=== PATIENT | female | born 1975 | race Caucasian/White ===

== ENCOUNTER 2017-03-12 17:22 | Emergency (ER) | payer BC ==
[2017-03-12] MEDS ORDERED: SODIUM CHLORIDE 0.9% 1,000 ML IV ONE (18:13)
[2017-03-12] MEDS ORDERED: RX INFO: IV CONTRAST WAS GIVEN 1 EACH MISC MISCELLANE PRN (18:14)
[2017-03-12 18:19] LABS: Glucose,Whole Blood 116 mg/dL (75-99)
[2017-03-12 18:26] LABS: Appearance,Urine Clear (Clear); Bilirubin,Urine Negative (Negative); Glucose,Urine (UA) Negative (Negative); Ketones,Urine Negative (Negative); Leukocyte Esterase,Urine Negative (Negative); Nitrite,Urine Negative (Negative); PH, Urine 6.5 (5.0-8.0); Protein,Urine Negative (Negative); Specific Gravity,Urine 1.006 (1.001-1.035); UA Billing (MACRO vs. MICRO) CHEM; Urobilinogen,Urine <2.0 mg/dL (<2.0)
[2017-03-12 18:28] LABS: Basophils # (A) 0.1 k/uL (0-0.2); Basophils % (A) 1 %; CH 33.3; CHCM 33.5; Eosinophils # (A) 0.3 k/uL (0-0.7); Eosinophils % (A) 3 %; HCT 42.4 % (34.0-46.0); HDW 2.27; HGB 14.2 gm/dL (11.4-16.0); Luc # (Auto) 0.16; Luc % (Auto) 2; Lymphocytes # (A) 2.4 k/uL (1.0-4.8); Lymphocytes % (A) 26 %; MCH 33.4 pg (25.0-35.0); MCHC 33.6 g/dL (31.0-37.0); MCV 99.6 fL (80.0-100.0); Mean Platelet Volume 8.9; Monocytes # (A) 0.5 k/uL (0-1.0); Monocytes % (A) 6 %; Neutrophils # (A) 5.9 k/uL (1.3-7.7); Neutrophils % (A) 63 %; RBC 4.26 m/uL (3.80-5.40); RDW 12.3 % (11.5-15.5); WBC 9.4 k/uL (3.8-10.6)
[2017-03-12 18:34] LABS: Partial Thromboplastin Time 26.3 sec (22.0-30.0); Prothrombin Time 10.1 sec (9.0-12.0)
[2017-03-12 18:35] LABS: ALT 32 U/L (9-52); AST 24 U/L (14-36); Alkaline Phosphatase 70 U/L (38-126); Anion Gap 9 mmol/L; Blood Urea Nitrogen 8 mg/dL (7-17); Calcium 9.4 mg/dL (8.4-10.2); Carbon Dioxide 25 mmol/L (22-30); Chloride 102 mmol/L (98-107); Glucose 85 mg/dL (74-99); Non-African American GFR(MDRD) >60 (>60 ml/min/1.73 sqM); Sodium 136 mmol/L (137-145); Total Bilirubin 0.3 mg/dL (0.2-1.3); Total Protein 7.1 g/dL (6.3-8.2)
[2017-03-12 18:46] LABS: Creatine Kinase 143 U/L (30-135)
[2017-03-12 18:59] LABS: Troponin I <0.012 ng/mL (0.000-0.034)
[2017-03-12 19:09] LABS: Creatine Kinase MB 3.6 ng/mL (0.0-2.4)
--- NOTE | 2017-03-12 19:59 | CT ---
EXAMINATION TYPE: CT brain wo con DATE OF EXAM: 03/12/2017 COMPARISON: 09/18/2009 HISTORY: Patient complains of headache and altered mental status. CT DLP: 837.5 mGycm. Automated Exposure Control for Dose Reduction was Utilized. TECHNIQUE: CT scan of the head is performed without contrast. FINDINGS: There is no acute intracranial hemorrhage, mass effect, or midline shift identified. The ventricles and sulci are within normal limits in size. The globes are intact and the visualized sin uses are clear. There is hypoplasia of the frontal sinuses noted. IMPRESSION: 1. No acute intracranial hemorrhage, mass effect, or midline shift is seen. 2. Frontal sinus hypoplasia.
--- NOTE | 2017-03-12 20:17 | CT ---
EXAMINATION TYPE: CT angio head neck DATE OF EXAM: 03/12/2017 HISTORY: Patient complains of headache, neck stiffness, and episode of confusion. COMPARISON: NONE CT DLP: 229 mGycm. Automated Exposure Control for Dose Reduction was Utilized. TECHNIQUE: CTA scan of the neck is performed with IV Contrast, patient injected with 65 mL of Omnipa que 350, axial images are obtained, coronal and sagittal reformatted images are reviewed. Three-D rec onstructed images are created on an independent workstation and reviewed. FINDINGS: Carotid/Vascular Structures: Origins of the great vessels are unremarkable without evidence of stenos is. Common carotid arteries also demonstrate no evidence of stenosis. No evidence of calcific or nonc alcific atherosclerosis at the carotid bulbs. Internal carotid arteries are widely patent. There is n o evidence of intracranial aneurysm or stenosis. The posterior to indicating arteries appear diminuti ve although the [place] of [place] appears intact. In the arterial phase there is somewhat limited eval uation of the intracranial structures. No evidence of midline shift. The vertebral arteries have norm al origins and are also widely patent without evidence of dissection. Vertebral arteries are codomina nt. Other: Mild paraseptal emphysematous changes are seen with right apical blebs noted. Osseous structur es appear intact. Small disc osteophyte complexes are seen the 3 C4, C4-C5, and C5-C6. IMPRESSION: No evidence of stenosis, dissection, or aneurysm of the carotid, vertebral arteries, or intracranial vasculature.
--- NOTE | 2017-03-12 20:23 | XR ---
EXAMINATION TYPE: XR chest 2V DATE OF EXAM: 03/12/2017 COMPARISON: 09/18/2009 HISTORY: Altered mental status. TECHNIQUE: Frontal and lateral views of the chest are obtained. FINDINGS: There is no focal air space opacity, pleural effusion, or pneumothorax seen. The cardiac silhouette size is within normal limits. The osseous structures are intact. Minimal degenerative ch anges of the thoracic spine are seen. IMPRESSION: No acute cardiopulmonary process.
[2017-03-12 20:40] VITALS: RESP 16
--- NOTE | 2017-03-12 22:16 | ED ---
Altered Mental Status HPI - General Chief Complaint: Altered Mental Status Stated Complaint: HEAD AND NECK STIFFNESS, CONFUSION Time Seen by Provider: 03/12/17 18:07 Source: patient Mode of arrival: ambulatory Limitations: no limitations - History of Present Illness Initial Comments: Mno antibiotics are not her family noticed that there was a change in the mental status she was very slow responding it happened when they were walking and about 4 PM this in time she said she heard a pop in her back of her head and then she was INFORMED him of right side of the body was no loss of consciousness she was nauseous no vomiting. Does have a headache plus nausea no vomiting no signs of TIA or CVA. Does have a headache no neck stiffness no chest pain no shortness of breath no abdominal pain - Related Data Home Medications Medication Instructions Recorded Confirmed traMADol HCl [Ultram] 50 mg PO BID PRN 02/25/14 03/12/17 Cyclobenzaprine [Flexeril] 5 mg PO HS PRN 08/28/14 03/12/17 Gabapentin [Neurontin] 400 mg PO QID 08/28/14 03/12/17 Ondansetron [Zofran ODT] 8 mg PO Q8HR PRN 03/12/17 03/12/17 Previous Rx's Medication Instructions Recorded traMADol HCL [Ultram] 50 mg PO Q6HR PRN #15 tab 03/12/17 Allergies Allergy/AdvReac Type Severity Reaction Status Date / Time aspirin Allergy Rash/Hives Verified 03/12/17 18:55 codeine Allergy Anaphylaxis Verified 03/12/17 18:55 hydrocodone bitartrate Allergy Anaphylaxis Verified 03/12/17 18:55 [From Vicodin] morphine Allergy Anaphylaxis Verified 03/12/17 18:55 Review of Systems ROS Statement: Those systems with pertinent positive or pertinent negative responses have been documented in the HPI. ROS Other: All systems not noted in ROS Statement are negative. Past Medical History Past Medical History: Rheumatoid Arthritis (RA) History of Any Multi-Drug Resistant Organisms: None Reported Past Surgical History: Section, Tubal Ligation, Uterine Ablation Additional Past Surgical History / Comment(s): Nephrectomy - Left; Past Psychological History: No Psychological Hx Reported Smoking Status: Current every day smoker Past Alcohol Use History: Occasional Past Drug Use History: None Reported General Exam - General Exam Comments Initial Comments: General: The patient is awake and alert, in no distress, and does not appear acutely ill. Does looks anxious anxious him a GCS is 15 Skin: Skin is warm and dry and no rashes or lesions are noted. Eye: Pupils are equal, round and reactive to light, extra-ocular movements are intact; there is normal conjunctiva bilaterally. Ears, nose, mouth and throat: There are moist mucous membranes and no oral lesions. Neck: The neck is supple, there is no tenderness or JVD. Cardiovascular: There is a regular rate and rhythm. No murmur, rub or gallop is appreciated. Respiratory: To auscultation bilateral, no wheezing no rhonchi no distress respiratory saldana noticed Gastrointestinal: Soft, non-distended, non-tender abdomen without masses or organomegaly noted. There is no rebound or guarding present. Bowel sounds are unremarkable. Back: There is no tenderness to palpation in the midline. There is no obvious deformity. Musculoskeletal: Normal ROM, no tenderness, There is no pedal edema. There is no calf tenderness or swelling. No cords were appreciated. Neurological: CN II-XII intact, Cranial nerves III through XII are intact. There are no obvious motor or sensory deficits. Coordination appears grossly intact. Speech is normal. Psychiatric: Cooperative, appropriate mood & affect, normal judgment. Limitations: no limitations Course Vital Signs 03/12/17 03/12/17 03/12/17 17:34 18:55 20:39 Temperature 98.4 F Pulse Rate 74 71 76 Respiratory 18 18 16 Rate Blood Pressure 139/73 130/88 140/88 O2 Sat by Pulse 98 98 97 Oximetry Laboratory reviewed, CBC, CMP, troponin, EKG is within normal range head CT and CT angios LS or unremarkable as well, these were discussed with the patient, patient was advised to take Tylenol or Motrin for the headache she had trach does she be given some tramadol to follow-up with family doctor - Reevaluation(s) Reevaluation #1: 03/12/17 22:17 Anicteric 2215 she feels quite GCS is 15 and she agrees to go home and follow- up with family doctor Medical Decision Making - Lab Data Result diagrams: 03/12/17 17:50 03/12/17 17:50 Lab Results 03/12/17 03/12/17 03/12/17 Range/Units 17:50 17:50 17:50 WBC 9.4 (3.8-10.6) k/uL RBC 4.26 (3.80-5.40) m/uL Hgb 14.2 (11.4-16.0) gm/dL Hct 42.4 (34.0-46.0) % MCV 99.6 (80.0-100.0) fL MCH 33.4 (25.0-35.0) pg MCHC 33.6 (31.0-37.0) g/dL RDW 12.3 (11.5-15.5) % Plt Count 200 (150-450) k/uL Neutrophils % 63 % Lymphocytes % 26 % Monocytes % 6 % Eosinophils % 3 % Basophils % 1 % Neutrophils # 5.9 (1.3-7.7) k/uL Lymphocytes # 2.4 (1.0-4.8) k/uL Monocytes # 0.5 (0-1.0) k/uL Eosinophils # 0.3 (0-0.7) k/uL Basophils # 0.1 (0-0.2) k/uL PT (9.0-12.0) sec INR (<1.2) APTT (22.0-30.0) sec Sodium 136 L (137-145) mmol/L Potassium 4.0 (3.5-5.1) mmol/L Chloride 102 (98-107) mmol/L Carbon Dioxide 25 (22-30) mmol/L Anion Gap 9 mmol/L BUN 8 (7-17) mg/dL Creatinine 0.81 (0.52-1.04) mg/dL Est GFR (MDRD) Af Amer >60 (>60 ml/min/1.73 sqM) Est GFR (MDRD) Non-Af >60 (>60 ml/min/1.73 sqM) Glucose 85 (74-99) mg/dL POC Glucose (mg/dL) (75-99) mg/dL POC Glu Cap Cutter ID Calcium 9.4 (8.4-10.2) mg/dL Total Bilirubin 0.3 (0.2-1.3) mg/dL AST 24 (14-36) U/L ALT 32 (9-52) U/L Alkaline Phosphatase 70 (38-126) U/L Total Creatine Kinase 143 H (30-135) U/L CK-MB (CK-2) 3.6 H* (0.0-2.4) ng/mL CK-MB (CK-2) Rel Index 2.5 Troponin I <0.012 (0.000-0.034) ng/mL Total Protein 7.1 (6.3-8.2) g/dL Albumin 4.2 (3.5-5.0) g/dL Urine Color Urine Appearance (Clear) Urine pH (5.0-8.0) Ur Specific [place] (1.001-1.035) Urine Protein (Negative) Urine Glucose (UA) (Negative) Urine Ketones (Negative) Urine Blood (Negative) Urine Nitrite (Negative) Urine Bilirubin (Negative) Urine Urobilinogen (<2.0) mg/dL Ur Leukocyte Esterase (Negative) Urine Opiates Screen (NotDetected) Ur Oxycodone Screen (NotDetected) Urine Methadone Screen (NotDetected) Ur Propoxyphene Screen (NotDetected) Ur Barbiturates Screen (NotDetected) U Tricyclic Antidepress (NotDetected) Ur Phencyclidine Scrn (NotDetected) Ur Amphetamines Screen (NotDetected) U Methamphetamines Scrn (NotDetected) U Benzodiazepines Scrn (NotDetected) Urine Cocaine Screen (NotDetected) U Marijuana (THC) Screen (NotDetected) 03/12/17 03/12/17 03/12/17 Range/Units 17:50 17:50 18:18 WBC (3.8-10.6) k/uL RBC (3.80-5.40) m/uL Hgb (11.4-16.0) gm/dL Hct (34.0-46.0) % MCV (80.0-100.0) fL MCH (25.0-35.0) pg MCHC (31.0-37.0) g/dL RDW (11.5-15.5) % Plt Count (150-450) k/uL Neutrophils % % Lymphocytes % % Monocytes % % Eosinophils % % Basophils % % Neutrophils # (1.3-7.7) k/uL Lymphocytes # (1.0-4.8) k/uL Monocytes # (0-1.0) k/uL Eosinophils # (0-0.7) k/uL Basophils # (0-0.2) k/uL PT 10.1 (9.0-12.0) sec INR 1.0 (<1.2) APTT 26.3 (22.0-30.0) sec Sodium (137-145) mmol/L Potassium (3.5-5.1) mmol/L Chloride (98-107) mmol/L Carbon Dioxide (22-30) mmol/L Anion Gap mmol/L BUN (7-17) mg/dL Creatinine (0.52-1.04) mg/dL Est GFR (MDRD) Af Amer (>60 ml/min/1.73 sqM) Est GFR (MDRD) Non-Af (>60 ml/min/1.73 sqM) Glucose (74-99) mg/dL POC Glucose (mg/dL) 116 H (75-99) mg/dL POC Glu Cap Cutter ID Theresa Penaloza Calcium (8.4-10.2) mg/dL Total Bilirubin (0.2-1.3) mg/dL AST (14-36) U/L ALT (9-52) U/L Alkaline Phosphatase (38-126) U/L Total Creatine Kinase (30-135) U/L CK-MB (CK-2) (0.0-2.4) ng/mL CK-MB (CK-2) Rel Index Troponin I (0.000-0.034) ng/mL Total Protein (6.3-8.2) g/dL Albumin (3.5-5.0) g/dL Urine Color Light Yellow Urine Appearance Clear (Clear) Urine pH 6.5 (5.0-8.0) Ur Specific [place] 1.006 (1.001-1.035) Urine Protein Negative (Negative) Urine Glucose (UA) Negative (Negative) Urine Ketones Negative (Negative) Urine Blood Negative (Negative) Urine Nitrite Negative (Negative) Urine Bilirubin Negative (Negative) Urine Urobilinogen <2.0 (<2.0) mg/dL Ur Leukocyte Esterase Negative (Negative) Urine Opiates Screen Not Detected (NotDetected) Ur Oxycodone Screen Not Detected (NotDetected) Urine Methadone Screen Not Detected (NotDetected) Ur Propoxyphene Screen Not Detected (NotDetected) Ur Barbiturates Screen Not Detected (NotDetected) U Tricyclic Antidepress Not Detected (NotDetected) Ur Phencyclidine Scrn Not Detected (NotDetected) Ur Amphetamines Screen Not Detected (NotDetected) U Methamphetamines Scrn Not Detected (NotDetected) U Benzodiazepines Scrn Not Detected (NotDetected) Urine Cocaine Screen Not Detected (NotDetected) U Marijuana (THC) Screen Not Detected (NotDetected) Disposition Clinical Impression: Headache, Change in mental status Disposition: HOME SELF-CARE Condition: Good Prescriptions: traMADol HCL [Ultram] 50 mg PO Q6HR PRN #15 tab PRN Reason: Pain Referrals: Annia Silva DO [Primary Care Provider] - 1-2 days
[2017-03-12 22:27] VITALS: TEMP 97.6
[2017-03-12 22:36] VITALS: BP 129/63; PULSE 65
== END 2017-03-12 22:39 | disposition home or self-care (01) ==
LOC: EC 17:22
DX: R41.82 Altered mental status, unspecified (principal); R51 Headache; R40.2412 Glasgow coma scale score 13-15, at arrival to emergency department; F17.200 Nicotine dependence, unspecified, uncomplicated; Z79.899 Other long term (current) drug therapy; Z88.6 Allergy status to analgesic agent; Z88.5 Allergy status to narcotic agent
CPT/HCPCS: 99285 ×2; 96360 ×2; 36415; 93005; 80053; 82550; 82553; 84484; 85025; 85610; 85730; 81003; 80306; 71020; 70496; 70450; 70498; Q9967

== ENCOUNTER 2017-06-13 07:18 | Day surgery (SDC) | payer BC, OTHER ==
[2017-06-07 11:30] VITALS: BMI 23.3
--- NOTE | 2017-06-12 13:59 | HP ---
HISTORY AND PHYSICAL CHIEF COMPLAINT: Right shoulder pain. 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 She notes persistent pain with overhead use and at night ever since. She has tried therapy in addition to an injection site. She has tried therapy in addition to medications with only partial temporary relief. She has been working with restrictions. PAST MEDICAL HISTORY: Significant for rheumatoid arthritis. PAST SURGICAL HISTORY: Significant for previous nephrectomy and section. CURRENT MEDICATIONS: Motrin. ALLERGIES: She has ALLERGIES TO VICODIN, DARVOCET, AND MORPHINE. FAMILY HISTORY: Significant for cancer and heart disease. SOCIAL HISTORY: Negative for current tobacco or alcohol use. REVIEW OF SYSTEMS: Sixteen point review of systems otherwise reviewed and is noncontributory. PHYSICAL EXAMINATION: On examination, the patient is approximately 5 foot 4, 144 pounds of mesomorphic habitus. HEENT exam is nonfocal. Neck is supple. On examination of the right shoulder, she is tender about the anterior subacromial space. She has moderate crepitus. Active range of motion forward elevation 80 degrees, external rotation with the arm at side 0 degrees, internal rotation to L5. Passively I am able to forward elevate her to 100 degrees. Motor strength is 4+/5 for external rotation with the arm at the side. Impingement test, Neer test, and Speed tests are positive. Her distal neurovascular appears intact otherwise in the right upper extremity. MRI report from 03/15/2017 shows a supraspinatus tendon tear with minimal retraction. IMPRESSION: 1. Acute right rotator cuff tear/impingement. 2. History of rheumatoid arthritis. RECOMMENDATIONS: I talked to the patient at length regarding her treatment options. She remains quite symptomatic after this acute injury. After thorough discussion, she opts to proceed with surgery. We will plan to proceed with arthroscopic evaluation with possible subacromial decompression and rotator cuff repair. Risks and benefits were discussed at length in layman's term. We will likely perform as an outpatient procedure. MMODL / IJN: [id number] /
[~2017-06-13 07:18] MED LIST: DEXAMETHASONE SOD PHOSPHATE 10 MG/ML 1 ML VIAL IV ONE; HYDROmorphone 1 MG/ML 1 ML SYRINGE IVP PRN; LACTATED RINGERS 1,000 ML IV SCH; MIDAZOLAM 2 MG/2 ML VIAL IV PRN; ONDANSETRON 4 MG/2 ML VIAL IVP ONE; ceFAZolin 1,000 MG in DEXTROSE/WATER 1 50ML.BAG IVPB ONE
[2017-06-13] MEDS ORDERED: LIDOCAINE 1% 20 ML VIAL (10MG/ML) FOR IV START INTRADERMA ONE (08:07)
[2017-06-13] MEDS ORDERED: ROPIVACAINE 5 MG/ML 30 ML VIAL ONE (09:08)
[2017-06-13] MEDS ORDERED: LIDOCAINE 2%-EPI 1:100,000 20 ML VIAL ONE (09:08)
[2017-06-13] MEDS ORDERED: LIDOCAINE 1% INJ 10MG/ML (20 ML MDV) ONE (09:08)
[2017-06-13] MEDS ORDERED: PROPOFOL 10 MG/ML 20 ML VIAL IV ONE (09:08)
[2017-06-13] MEDS ORDERED: KETAMINE 10 MG/ML 20 ML VIAL ONE (09:08)
[2017-06-13] MEDS ORDERED: SUCCINYLCHOLINE CHLORIDE 100 MG/5 ML SYR IV ONE (09:08)
[2017-06-13] MEDS ORDERED: fentaNYL (PF) 50 MCG/ML 2 ML AMP ONE (09:08)
[2017-06-13] MEDS ORDERED: EPINEPHrine (PF) 1 ML in SODIUM CHLORIDE 0.9% IRRIGATIO 3,000 ML IRRIGATION ONE ×7 (09:38→09:39)
--- NOTE | 2017-06-13 09:38 | P.ONQ ---
Anesthesiology Proc Note - PNB - Peripheral Nerve Block Performed Right Interscalene Indication: Acute Post-Operative Pain, Requested by physician (Dr Sauceda) Sedation Type: Sedate with meaningful contact maintained Preparation: Sterile Prep Position: Supine Catheter: None Needle Types: Other (see comment) ([place]) Needle Size: 50mm (2") Needle Gauge: 20 Technique: Ultrasound (0.5% Ropivacaine 14cc, Lidocaine1% 14cc, 1:100,00 epi) Blood Aspirated: No Pain Paresthesia on Injection Noted: No Resistance on Injection: Normal Events: Uneventful and Well Tolerated
--- NOTE | 2017-06-13 10:52 | P.OP ---
Date of Procedure: 06/13/17 Preoperative Diagnosis: Right shoulder impingement/symptomatic rotator cuff tear Postoperative Diagnosis: 3 cm retracted rotator cuff tear/synovitis right glenohumeral joint Procedure(s) Performed: Right shoulder arthroscopic subacromial decompression/rotator cuff repair/ partial synovectomy Implants: Mitek 4.75 mm corkscrew anchor 4 Anesthesia: shaye HARDWICK Surgeon: Palomo Sauceda [place] Polisher Operator #1: Rafat Thomas Estimated Blood Loss (ml): 10 Condition: stable Disposition: PACU Indications for Procedure: The patient's a 41-year-old female who presents with progressive right shoulder pain after a recent fall. Clinically and by MRI she is noted of evidence of a symptomatic rotator cuff tear. A discussion of the risks and benefits of operative intervention versus continued conservative measures was made with patient. She opted to proceed with surgery. Operative risks to include infection, neurovascular injury, tendon rerupture, possible postoperative stiffness and need for subsequent procedures was discussed. Informed consent was obtained. Operative Findings: As below Description of Procedure: The patient was brought to the operating room, and after induction of general anesthesia examined the right shoulder. There was no gross block to passive motion. There was no gross glenohumeral instability. The right upper extremity was prepped and draped in a normal fashion. The bony outlines the acromion, distal clavicle, and coracoid process were outlined with a skin marker. The glenohumeral joint was inflated with 50 mL of saline utilizing a spinal needle from a posterior approach. A posterior portal was made through a 5 mm skin incision 1 cm medial and inferior to the posterior lateral border the acromion. A blunt trocar was used to easily into the joint. Diagnostic arthroscopy was performed. An anterior portals made just lateral to the coracoid process entering the joint above the subscapularis tendon. There was significant synovitis of the rotator interval that was debrided with a motorized shaver. The subscapularis tendon appear to be intact. The biceps tendon appeared to be intact. There was a tear involving the supraspinatus and infraspinatus tendon with 2 cm of retraction. The posterior portion the cuff appeared to be intact. The posterior labrum was intact. Minimal degenerative changes well the glenohumeral joint were noted. The inferior recess was inspected. The arthroscope was then placed into the subacromial space. A lateral portal was made through a 5 mm skin incision 2 cm inferior to the anterior lateral border of the acromion. The soft tissue on the undersurface of the acromion was debrided with a motorized shaver and with electrocautery. The coracoacromial ligament was detached from the anterior acromion. An anterior inferior acromioplasty was performed with a motorized markus starting anterolateral, then extending this posteriorly, then extending this medially. I was able to convert to a flat acromion. This is verified from the posterior and lateral viewing portals. The rotator cuff tear was then inspected. The edges were debrided with a motorized shaver. The greater tuberosity was lightly decorticated utilizing a motorized markus that a bleeding bony surface. The rotator cuff tissue was moderately thin and somewhat friable. I was able to bring the cuff back to the greater tuberosity without undue tension. A traction suture was utilized to help facilitate this. An accessory superior lateral portals made through a 4 mm skin incision just off the lateral edge of the acromion. The appropriate starting awl was utilized to place 2 4.75 millimeter anchors just off the articular surface. Good purchase was obtained. The #2 tape was then passed through the rotator cuff with a scorpion suture passer. A lateral row was then created crisscrossing the sutures placing 2 4.75 millimeter anchors. Again there was good purchase. Final arthroscopic view showed adequate compression at the footprint and fixation. The arthroscope was then removed. The portals were closed with simple 3-0 nylon suture. A sterile dressing was applied in addition to an abductor brace. The patient was awoken from general anesthesia and transferred to recovery room in good condition. Blood loss was estimated at 10 mL. No complications were incurred. Sponge and needle counts were correct at the end the case.
[2017-06-14 22:56] VITALS: BP 100/72; PULSE 79; RESP 18; TEMP 97
== END 2017-06-13 13:21 | disposition home or self-care (01) ==
LOC: OR 07:18
PROVIDERS: ATTEND Orthopaedic Surgery
DX: M75.101 Unspecified rotator cuff tear or rupture of right shoulder, not specified as traumatic (principal); M65.9 Synovitis and tenosynovitis, unspecified; W01.0XXA Fall on same level from slipping, tripping and stumbling without subsequent striking against object, initial encounter; M06.9 Rheumatoid arthritis, unspecified; F17.200 Nicotine dependence, unspecified, uncomplicated; Z79.1 Long term (current) use of non-steroidal anti-inflammatories (NSAID); Z79.891 Long term (current) use of opiate analgesic; Z79.899 Other long term (current) drug therapy; Z88.5 Allergy status to narcotic agent; Z88.6 Allergy status to analgesic agent
CPT/HCPCS: 29826; 64415; 29827; J2250; J1100; J2405; J0171; J0690; 81025

== ENCOUNTER 2017-11-17 07:55 | Day surgery (SDC) | payer OTHER ==
[2017-11-10 10:45] VITALS: BMI 25.0
--- NOTE | 2017-11-16 19:35 | HP ---
HISTORY AND PHYSICAL CHIEF COMPLAINT: Right shoulder pain and stiffness. 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 She has had an adequate course of rehabilitation. PAST MEDICAL HISTORY: Significant for rheumatoid arthritis. PAST SURGICAL HISTORY: Significant for right shoulder arthroscopy with rotator cuff repair, nephrectomy and section. CURRENT MEDICATIONS: Motrin. She notes allergies to VICODIN, DARVOCET, and MORPHINE. FAMILY HISTORY: Noncontributory. SOCIAL HISTORY: Negative for current tobacco or alcohol use. REVIEW OF SYSTEMS: Sixteen point review of systems otherwise reviewed and is noncontributory. EXAMINATION: The patient is approximately 5 feet 4 inches, 143 pounds of mesomorphic habitus. HEENT is nonfocal. Neck is supple. RIGHT SHOULDER: There is no warmth or erythema. She has no real point tenderness. Active motion: Forward elevation 100 degrees, external rotation with arm at side 15 degrees, internal rotation to L4. Passively, I am able to forward elevate her to 110 degrees. Motor strength is 5-/5 for external rotation with the arm at the side. Her distal neurovascular otherwise appears intact in the right upper extremity. IMPRESSION: 1. Status post right shoulder arthroscopic rotator cuff repair. 2. Right shoulder adhesive capsulitis. RECOMMENDATIONS: I talked to the patient at length regarding her condition and treatment options. At this point, she has persistent stiffness, despite adequate rehabilitation. After a thorough discussion, she opts to proceed with right shoulder manipulation under anesthesia. We will likely perform that as an outpatient procedure utilizing IV sedation. Risks and benefits were discussed at length in layman's terms. MMODL / IJN: [id number] /
[~2017-11-17 07:55] MED LIST changes: -HYDROmorphone 1 MG/ML 1 ML SYRINGE IVP PRN; -MIDAZOLAM 2 MG/2 ML VIAL IV PRN; +MORPHINE SULFATE 2 MG/ML SYRINGE IV PRN; +ONDANSETRON 4 MG/2 ML VIAL IVP PRN; +PROMETHAZINE INJ 6.25 MG in SODIUM CHLORIDE 0.9% 50 ML IVPB PRN
[2017-11-17] MEDS ORDERED: LIDOCAINE 1% 20 ML VIAL (10MG/ML) FOR IV START INTRADERMA ONE (08:24)
[2017-11-17] MEDS ORDERED: PROPOFOL 10 MG/ML 20 ML VIAL IV ONE (08:47)
[2017-11-17] MEDS ORDERED: LIDOCAINE 1% INJ 10MG/ML (20 ML MDV) ONE (08:47)
--- NOTE | 2017-11-17 08:58 | P.OP ---
Date of Procedure: 11/17/17 Preoperative Diagnosis: Right shoulder adhesive capsulitis/status post right rotator cuff repair Postoperative Diagnosis: Same Procedure(s) Performed: Right shoulder manipulation under anesthesia Anesthesia: MAC Surgeon: Palmoo Sauceda Estimated Blood Loss (ml): 0 Pathology: none sent Condition: stable Disposition: PACU Indications for Procedure: The patient's a 42-year-old female who presents after undergoing a previous right shoulder arthroscopic rotator cuff repair with persistent stiffness despite adequate rehabilitation. A discussion of the risks and benefits of manipulation under anesthesia was made with patient. She opted to proceed. Specific risks of this procedure to include fracture, tendon rerupture, recurrence of stiffness and need for subsequent procedures was discussed. Informed consent was obtained. Operative Findings: Moderate adhesions Description of Procedure: The patient was brought to the recovery room, and after induction of IV sedation I gently manipulated her right shoulder. She had moderate adhesions. First with the arm at the side, I was able to obtain 70 of external rotation. I then was able to obtain full forward elevation. I felt there was adequate release at this point. The patient was then monitored until fully awake. No complications were incurred.
[2017-11-17] MEDS: fentaNYL (PF) 50 MCG/ML 2 ML AMP IVP ONE ×2 (09:06→09:11)
[2017-11-17] MEDS: HYDROmorphone 0.5 MG/0.5 ML SYRINGE IVP PRN ×4 (09:15→09:30)
[2017-11-17 09:17] VITALS: TEMP 97.4
[2017-11-17] MEDS ORDERED: KETOROLAC 30 MG/ML 1 ML VIAL IVP ONE (09:23)
[2017-11-17] MEDS ORDERED: traMADol 50 MG TAB PO ONE (10:08)
[2017-11-17 10:53] VITALS: BP 111/59; PULSE 78; RESP 18
== END 2017-11-17 11:00 | disposition home or self-care (01) ==
LOC: OR 07:55
PROVIDERS: ATTEND Orthopaedic Surgery
DX: M75.01 Adhesive capsulitis of right shoulder (principal); Z98.890 Other specified postprocedural states; M06.9 Rheumatoid arthritis, unspecified; Z90.5 Acquired absence of kidney; Z79.1 Long term (current) use of non-steroidal anti-inflammatories (NSAID); Z88.5 Allergy status to narcotic agent; Z72.0 Tobacco use
CPT/HCPCS: 23700; 81025; J1100; J2405; J2001; J3010; J1885; J2704; J1170